=== PATIENT | male | born 1995 | race Caucasian/White ===

== ENCOUNTER 2020-01-27 00:37 | Emergency (ER) | payer OTHER ==
[~2020-01-27] VITALS: Ht 182.9 cm; Wt 145.1 kg
[~2020-01-27 00:37] MED LIST: ABILIFY2 MG PO; ABILIFY5 MG PO; DEXILANT60 MG PO; DICYCLOMINE HCL20 MG PO; NORCO 7.5-3251 EACH PO; PERCOCET 5-3251 EACH PO; PHENERGAN PO; TRAZODONE HCL50 MG PO
[2020-01-27 01:58] LABS: BASOPHILS # (AUTO) 0.1 (0.0-0.1); BASOPHILS % 0.4 % (0.0-1.0); EOSINOPHILS # (AUTO) 0.1 (0.0-0.4); EOSINOPHILS % 0.6 % (0.0-6.0); HEMATOCRIT 43.1 % (38.2-49.6); HEMOGLOBIN 14.8 g/dL (14.0-18.0); LYMPHOCYTES # (AUTO) 3.5 (1.0-3.2); LYMPHOCYTES % 28.5 % (18.0-39.1); MEAN CORPUSCULAR HGB CONC 34.3 g/dL (31-35); MEAN CORPUSCULAR VOLUME 90.2 fL (81-99); MONOCYTES # (AUTO) 1.1 (0.2-0.8); MONOCYTES % 8.7 % (4.4-11.3); NEUTROPHILS # (AUTO) 7.4 (2.1-6.9); NEUTROPHILS % 60.7 % (38.7-80.0); PLATELET COUNT 332 x10e3/uL (140-360); RED BLOOD COUNT 4.78 x10e6/uL (4.3-5.7); RED CELL DISTRIBUTION WIDTH 13.9 % (11.7-14.4)
[2020-01-27 02:08] LABS: ALANINE AMINOTRANSFERASE 57 IU/L (0-55); ALBUMIN 4.2 g/dL (3.5-5.0); ALBUMIN/GLOBULIN RATIO 1.1 (0.8-2.0); ALKALINE PHOSPHATASE 99 IU/L (40-150); BLOOD UREA NITROGEN 14 mg/dL (7-26); BUN/CREATININE RATIO 13 (6-25); CALCIUM 9.7 mg/dL (8.4-10.2); CARBON DIOXIDE 26 mmol/L (22-29); CREATININE, SERUM 1.06 mg/dL (0.72-1.25); EST GLOMERULAR FILTRATION RATE > 60 ML/MIN (60-); GLUCOSE 106 mg/dL (74-118)
[2020-01-27 02:16] LABS: AMPHETAMINES SCREEN,URINE NEGATIVE (NEGATIVE); CLARITY,URINE CLEAR (CLEAR); COLOR,URINE YELLOW (YELLOW); KETONES,URINE NEGATIVE (NEGATIVE); LEUKOCYTE ESTERASE ,URINE NEGATIVE (NEGATIVE); NITRITE,URINE NEGATIVE (NEGATIVE); PHENCYCLIDINE SCREEN,URINE NEGATIVE (NEGATIVE); PROTEIN,URINE DIPSTICK NEGATIVE (NEGATIVE)
[2020-01-27 02:17] LABS: BACTERIA,URINE RARE /HPF; BENZODIAZEPINES SCREEN,URINE POSITIVE (NEGATIVE); BILIRUBIN,URINE NEGATIVE (NEGATIVE); EPITHELIAL CELLS,URINE RARE /LPF; RBC,URINE 0-5 /HPF (0-5); URINE UROBILINOGEN 0.2 mg/dL (0.2 - 1); WBC,URINE (MAN) 0-5 /HPF (0-5)
[2020-01-27 02:27] LABS: ANION GAP 15.3 mmol/L (8-16); CHLORIDE 101 mmol/L (98-107); POTASSIUM 4.3 mmol/L (3.5-5.1); SODIUM 138 mmol/L (136-145)
== END 2020-01-27 02:30 | disposition home or self-care (01) ==
LOC: ER 00:37
DX: R10.32 Left lower quadrant pain (principal); K50.90 Crohn's disease, unspecified, without complications; F84.0 Autistic disorder; F17.210 Nicotine dependence, cigarettes, uncomplicated
CPT/HCPCS: 36415; 80053; 80307; 81001; 83690; 85025; 99283